=== PATIENT | female | born 1945 | race Two or more races ===

== ENCOUNTER 2020-03-25 16:30 | Outpatient (CLI) | payer OTHER | END 2020-03-25 16:31 | disposition home or self-care (01) | LOC: PPH VACUNA 16:30 | PROVIDERS: ATTEND Emergency Medicine Pediatric Emergency Medicine | DX: Z23 Encounter for immunization (principal) ==

== ENCOUNTER → 2020-11-29 | Outpatient (CLI) | payer OTHER | END | disposition home or self-care (01) | LOC: PPH VACUNA 08:05 | PROVIDERS: ATTEND Emergency Medicine Pediatric Emergency Medicine | DX: Z23 Encounter for immunization (principal) ==